=== PATIENT | female | born 1975 | race Caucasian/White ===

== ENCOUNTER 2016-09-15 09:27 | Emergency (ER) | payer MEDICAID, OTHER ==
[2016-09-15 09:31] VITALS: BMI 31.8
[2016-09-15 09:37] VITALS: PULSE 79; TEMP 98.1
--- NOTE | 2016-09-15 09:39 | ED PDOC ---
Arrival/HPI - General Chief Complaint: Abdominal Pain Time Seen by Provider: 09/15/16 09:31 Historian: Patient - History of Present Illness Narrative History of Present Illness (Text): 09/15/16 09:39 This 41 yo female , who denies medical history, presents to this emergency department complaining of suprapubic pelvic cramping x 7 days. Patient stated she had a positive test at home this morning. Patient denies trauma, fever, sob, cp, rash, vaginal bleeding, vaginal discharge, urinary symptoms, or abnormal gait. LMP: 09-11-2016 Time/Duration: 1 week Quality: Cramping Context: Home Past Medical History - Provider Review Nursing Documentation Reviewed: Yes - Infectious Disease Hx of Infectious Diseases: None - Past Medical History Past Medical History: No Previous - Psychiatric Hx Depression: No Hx Emotional Abuse: No Hx Physical Abuse: No Hx Substance Use: No - Past Surgical History Past Surgical History: No Previous - Surgical History Hx Section: Yes (x1) Other/Comment: 2 d&c's - Anesthesia Hx Anesthesia: Yes Hx Anesthesia Reactions: No - Suicidal Assessment Feels Threatened In Home Enviroment: No Family/Social History - Physician Review Nursing Documentation Reviewed: Yes Family/Social History: No Known Family HX Smoking Status: Never Smoked Hx Alcohol Use: No Hx Substance Use: No Allergies/Home Meds Allergies/Adverse Reactions: Allergies No Known Allergies Allergy (Verified 09/15/16 09:31) Review of Systems - Review of Systems Constitutional: Normal. absent: Fatigue, Weight Change, Fevers Eyes: Normal ENT: Normal Respiratory: Normal. absent: SOB, Cough Cardiovascular: Normal. absent: Chest Pain Gastrointestinal: Other (see hpi) Genitourinary Female: Normal. absent: Dysuria, Frequency, Hematuria, Vaginal Bleeding, Vaginal Discharge Musculoskeletal: Normal. absent: Back Pain Skin: Normal. absent: Rash Neurological: Normal. absent: Headache, Dizziness Endocrine: Normal Hemo/Lymphatic: Normal Psychiatric: Normal Physical Exam Vital Signs Temp Pulse Resp BP Pulse Ox 09/15/16 09:37 98.1 F 79 19 133/91 H 98 Temperature: Afebrile Blood Pressure: Normal Pulse: Regular Respiratory Rate: Normal Appearance: Positive for: Well-Appearing, Non-Toxic, Comfortable Pain Distress: None Mental Status: Positive for: Alert and Oriented X 3 - Systems Exam Head: Present: Atraumatic, Normocephalic Pupils: Present: PERRL Extroacular Muscles: Present: EOMI Conjunctiva: Present: Normal Mouth: Present: Moist Mucous Membranes Neck: Present: Normal Range of Motion Respiratory/Chest: Present: Clear to Auscultation, Good Air Exchange. No: Respiratory Distress, Accessory Muscle Use Cardiovascular: Present: Regular Rate and Rhythm, Normal S1, S2. No: Murmurs Abdomen: Present: Normal Bowel Sounds. No: Tenderness, Distention, Peritoneal Signs Back: Present: Normal Inspection. No: CVA Tenderness Upper Extremity: Present: Normal Inspection, Normal ROM, NORMAL PULSES, Neurovascularly Intact, Capillary Refill < 2s. No: Cyanosis, Edema Lower Extremity: Present: Normal Inspection, NORMAL PULSES, Normal ROM, Neurovascularly Intact, Capillary Refill < 2 s. No: Edema Neurological: Present: GCS=15, CN II-XII Intact, Speech Normal, Motor Func Grossly Intact, Normal Sensory Function, Normal Cerebellar Funct, Gait Normal Skin: Present: Warm, Dry, Normal Color. No: Rashes Psychiatric: Present: Alert, Oriented x 3 Medical Decision Making - Lab Interpretations Lab Results: 09/15/16 09:50 09/15/16 09:50 Lab Results 09/15/16 09:55: Blood Type O POSITIVE, Antibody Screen Negative, BBK History Checked No verified bt 09/15/16 09:50: Urine Color Light yellow, Urine Appearance Clear, Urine pH 7.5, Ur Specific Trinity 1.010, Urine Protein Negative, Urine Glucose (UA) Negative, Urine Ketones Negative, Urine Blood Small H, Urine Nitrate Negative, Urine Bilirubin Negative, Urine Urobilinogen 0.2, Ur Leukocyte Esterase Negative, Urine RBC 0 - 2, Urine WBC Negative, Ur Epithelial Cells 1 - 3, Urine Bacteria Few, Urine HCG, Qual Positive 09/15/16 09:50: Beta HCG, Quant 1114.20 H 09/15/16 09:50: Sodium 138, Potassium 4.1, Chloride 101, Carbon Dioxide 26, Anion Gap 15, BUN 11, Creatinine 0.6, Est GFR ( Amer) > 60, Est GFR (Non- Af Amer) > 60, Random Glucose 99, Calcium 9.8, Total Bilirubin 0.5, AST 26, ALT 33, Alkaline Phosphatase 54, Total Protein 8.7 H, Albumin 4.7, Globulin 4.0, Albumin/Globulin Ratio 1.2 09/15/16 09:50: WBC 9.5, RBC 4.42, Hgb 13.4, Hct 38.3, MCV 86.7, MCH 30.3, MCHC 35.0, RDW 13.7, Plt Count 307, MPV 9.4, Gran % 70.2 H, Lymph % (Auto) 24.8, Cassia % (Auto) 4.2, Eos % (Auto) 0.6 L, Baso % (Auto) 0.2, Gran # 6.66 H, Lymph # 2.4, Cassia # 0.4, Eos # 0.1, Baso # 0.02 - RAD Interpretation Narrative RAD Interpretations (Text): 09/15/16 13:36 Accession No. : [id number] Patient Name / ID : ANTONIA MAZARIEGOS / [id number] Exam Date : 09/15/2016 11:02:55 ( Approved ) Study Comment : Sex / Age : F / [id number] Creator : Marisabel Butler V. Dictator : Marisabel Butler V. Statuary Painter : Machine Accountant : Marisabel Butler V. Approver2 : Report Date : 09/15/2016 12:55:42 My Comment : HISTORY: pelvic cramping. 41-year-old female LMP 08/09/2016. Estimated date by LMP is 5 weeks 2 days. COMPARISON: None available. TECHNIQUE: Transvaginal FINDINGS: UTERUS: Measures 11.0 x 5.9 x 6.7 cm, anteverted. Slightly heterogeneous and slightly enlarged uterus. Small intramural fibroids are suggested-posteriorly these measure 1.1 x 1.0 x 1.1 cm and 9 x 8 x 9 mm. No gross submucosal extension noted. No intrauterine gestation seen. ENDOMETRIUM: Measures 2.1 cm mm in diameter. Thickened. Yet nonspecific CERVIX: Nabothian cyst 8 x 5 x 8 mm RIGHT OVARY: Measures 2.2 x 1.3 x 2.6 cm. No solid mass. Normal flow. LEFT OVARY: Measures 3.1 x 2.3 x 2.7 cm. No solid mass. Normal flow. 9 x 9 x 9 mm small cyst - this may represent a central cyst than a left corpus luteal. A smaller 7 mm rounded simple cyst slightly exophytic of the left ovary is also noted. FREE FLUID: No significant free fluid noted. OTHER FINDINGS: None. IMPRESSION: No intrauterine (or extra uterine/ectopic) gestation appreciated. Correlation with test advised. Probable left ovarian corpus luteal cyst with smaller slightly exophytic left ovarian follicular appearing cyst The thickened endometrium is nonspecific -hyperplastic changes including a decidual reaction are all on the consider abrasions. Correlation with the beta HCG levels recommended. Recommend follow-up transvaginal ultrasound exam 7 to 10 days if blood test is positive Radiology Orders: 09/15/16 09:37 OB TRANSVAGINAL [US] Stat - Medication Orders Current Medication Orders: Discontinued Medications Cephalexin Monohydrate (Keflex) 500 mg PO STAT STA PRN Reason: Protocol Stop: 09/15/16 12:40 Disposition/Present on Arrival - Present on Arrival Any Indicators Present on Arrival: No History of DVT/PE: No History of Uncontrolled Diabetes: No Urinary Catheter: No History of Decub. 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 Take medication as instructed. Radiologist is recommending repeat Beta Quant. blood test, and repeat ultrasaound in 7-10 days. To return to emergency if pain worsen. Prescriptions: Cephalexin [cephalexin] 500 mg PO BID #10 cap Vit No.78/Iron/FA [Prenatabs FA Tablet] 1 each PO DAILY #30 tablet Referrals: [facility] [Outside] - [facility] with [facility] [[facility]] - Follow up with primary Forms: [employer] (Hebrew)
[2016-09-15 10:03] LABS: PH,URINE 7.5 (4.7-8.0); URINE BILIRUBIN NEGATIVE (NEGATIVE); URINE BLOOD SMALL (NEGATIVE); URINE GLUCOSE (UA) NEGATIVE (NEGATIVE); URINE LEUKOCYTE ESTERASE NEGATIVE Leu/uL (NEGATIVE); URINE NITRATE NEGATIVE (NEGATIVE); URINE PROTEIN NEGATIVE mg/dL (<30 mg/dL); URINE UROBILINOGEN 0.2 E.U./dL (<1 E.U./dL)
[2016-09-15 10:09] LABS: HCG,QUALITATIVE URINE POSITIVE (NEGATIVE)
[2016-09-15 10:10] LABS: URINE APPEARANCE CLEAR (CLEAR); URINE COLOR LIGHT YELLOW (YELLOW)
[2016-09-15 10:12] LABS: BASO # 0.02 K/mm3 (0.0-2.0); BASO % 0.2 % (0.0-3.0); EOS # 0.1 (0.0-0.7); EOS % 0.6 % (1.5-5.0); GRAN # 6.66 (1.4-6.5); GRAN % 70.2 % (50.0-68.0); HEMOGLOBIN 13.4 g/dL (12.0-16.0); LYMPH # 2.4 (1.2-3.4); LYMPH % 24.8 % (22.0-35.0); MEAN CELL VOLUME 86.7 fl (80.0-105.0); MEAN CORPUSCULAR HEMOGLOBIN 30.3 pg (25.0-35.0); MEAN PLATELET VOLUME 9.4 fl (7.0-11.0); MONO # 0.4 (0.1-0.6); MONO % 4.2 % (1.0-6.0); PLATELET COUNT 307 10^3/uL (120.0-450.0); RBC 4.42 10^6/uL (3.5-6.1); RED CELL DISTRIBUTION WIDTH 13.7 % (11.5-14.5); WHITE BLOOD COUNT 9.5 10^3/ul (4.5-11.0)
[2016-09-15 10:16] LABS: URINE BACTERIA FEW (NEG); URINE RBC 0 - 2 /hpf (0-2); URINE WBC NEGATIVE /hpf (0-6)
[2016-09-15 10:21] LABS: ALB/GLOB RATIO 1.2 (1.1-1.8); ALBUMIN 4.7 g/dL (3.0-4.8); ALT/SGPT 33 U/L (7-56); AST/SGOT 26 U/L (15-39); BLOOD UREA NITROGEN 11 mg/dL (7-21); CALCIUM 9.8 mg/dL (8.4-10.5); GFR AFRICAN-AMERICAN > 60; GFR NON-AFRICAN AMERICAN > 60
--- NOTE | 2016-09-15 12:57 | US ---
HISTORY: pelvic cramping. 41-year-old female LMP 08/09/2016. Estimated date by LMP is 5 weeks 2 days. COMPARISON: None available. TECHNIQUE: Transvaginal FINDINGS: UTERUS: Measures 11.0 x 5.9 x 6.7 cm, anteverted. Slightly heterogeneous and slightly enlarged uterus. Small intramural fibroids are suggested-posteriorly these measure 1.1 x 1.0 x 1.1 cm and 9 x 8 x 9 mm. No gross submucosal extension noted. No intrauterine gestation seen. ENDOMETRIUM: Measures 2.1 cm mm in diameter. Thickened. Yet nonspecific CERVIX: Nabothian cyst 8 x 5 x 8 mm RIGHT OVARY: Measures 2.2 x 1.3 x 2.6 cm. No solid mass. Normal flow. LEFT OVARY: Measures 3.1 x 2.3 x 2.7 cm. No solid mass. Normal flow. 9 x 9 x 9 mm small cyst - this may represent a central cyst than a left corpus luteal. A smaller 7 mm rounded simple cyst slightly exophytic of the left ovary is also noted. FREE FLUID: No significant free fluid noted. OTHER FINDINGS: None. IMPRESSION: No intrauterine (or extra uterine/ectopic) gestation appreciated. Correlation with test advised. Probable left ovarian corpus luteal cyst with smaller slightly exophytic left ovarian follicular appearing cyst The thickened endometrium is nonspecific -hyperplastic changes including a decidual reaction are all on the consider abrasions. Correlation with the beta HCG levels recommended. Recommend follow-up transvaginal ultrasound exam 7 to 10 days if blood test is positive
[2016-09-15 13:42] VITALS: BP 110/64; RESP 18; O2SAT 99
== END 2016-09-15 13:50 | disposition home or self-care (01) ==
LOC: ED 09:27
DX: O26.899 Other specified pregnancy related conditions, unspecified trimester (principal); R10.2 Pelvic and perineal pain